=== PATIENT | male | born 1990 | race Caucasian/White ===

== ENCOUNTER 2021-12-03 17:07 | Emergency (ER) | payer SELFPAY ==
[2021-12-03 17:08] VITALS: BP 135/81; PULSE 77; RESP 16; TEMP 36.7; O2SAT 98; BMI 23.5
--- NOTE | 2021-12-03 17:38 | EDS_ITS ---
HPI <GAL Montemayor - Last Filed: 12/03/21 18:27> History of Present Illness Chief Complaint: Wound Narrative Narrative: Patient is a 31-year-old male with no significant ankle history presents the emergency department with complaints of lower back pain, the radiates down his right lower leg, blood in his urine after getting into an altercation with the police 3 days ago. Patient was in long term Tuesday, Tuesday, patient tried to go to work today however had too much pain in his lower back, right leg is here for evaluation. Patient denies any head or neck injury. PFSH <GAL Montemayor - Last Filed: 12/03/21 18:27> [facility] Medical History no medical history Home Medications naproxen [Naprosyn] 500 mg PO BID PRN #20 tab 12/03/21 [Rx Last Taken Unknown] Allergy/AdvReac Type Severity Reaction Status Date / Time No Known Allergies Allergy Verified 12/03/21 17:10 Family History no significant family his Surgical History no surgical history Social History Smoking Status: Current every day smoker tobacco type: cigarettes ROS <GAL Montemayor - Last Filed: 12/03/21 18:27> ROS ED ROS Narrative Constitutional: Negative for fever, chills, weight loss, weakness Eyes: Negative for vision loss, vision change, double vision ENT: Negative for any sore throat, ear pain, congestion Cardiovascular: Negative for any chest pain, tightness, palpitations, racing heartbeat Respiratory: Negative for any cough, sputum production, hemoptysis, shortness of breath, shortness of breath on exertion, orthopnea Gastrointestinal: Negative for any abdominal pain, nausea, vomiting, diarrhea, constipation, blood in stool, blood in vomit : Negative for any urinary frequency, incontinence, dysuria, retention. Positive for blood in urine Muscle skeletal: Negative for any muscle joint pain, stiffness, myalgias, arthralgias, neck pain. Positive back pain that radiates down right leg Neurological: Negative for any headache, dizziness, syncope, numbness or tingling Skin: Negative for any rashes, lumps, itching, abrasions, lacerations Psychiatric: Negative for any depression, anxiety, stress, suicidal ideation, homicidal ideation Hematologic: Negative for any easy bruising, excessive bruising, easy bleeding Allergies: Negative for any eczema, hives, rash EXAM <GAL Montemayor - Last Filed: 12/03/21 18:27> Physical Exam Narrative Exam Narrative: Vital signs reviewed. Patient appears anxious, patient has pain with any sort of movement. HEET: Head normocephalic atraumatic, TMs clear bilaterally. Posterior pharynx is clear, moist mucous membranes. Nares clear bilaterally. Neck: Supple with no lymphadenopathy or tenderness. No signs of meningismus, negative jolt sign. Cardiac: Regular rate and rhythm no murmurs gallops or rubs, equal peripheral pulses bilaterally. Respiratory: Lungs clear to auscultation bilaterally. No chest tenderness. Abdomen: Soft, nontender, nondistended. No abdominal bruit or pulsatile masses. No hepatosplenomegaly Extremities: No peripheral edema, no signs of gross trauma or deformity. Active full range of motion of all extremities. Neuro: Cranial nerves II through XII intact, no focal neurological deficits. Skin: Clean dry and intact with no rash, purpura, petechiae, vesicles or pustules. Backslash flank: No CVA tenderness, no midline spinal tenderness, no deformity. Patient has some pain on palpation to the lower lumbar spine more to the right above the right buttock. Patient does have a light bruise above the buttock however there is no crepitus. Patient has no pain to the midline spine, negative for any step-off deformity. Psych: Normal mood and affect. No SI, HI or acute psychosis. Const Vital Signs: 12/03/21 17:08 12/03/21 18:29 Temperature 98.1 F Temperature Source Temporal Pulse Rate 77 69 Respiratory Rate 16 17 Blood Pressure 135/81 H 111/74 Blood Pressure Mean 99 Pulse Ox 98 98 Oxygen Delivery Method Room Air Positive well nourished and well developed General Appearance ED: well developed <Dr. Shay Saavedra MD - Last Filed: 12/03/21 19:13> Physical Exam Const Vital Signs: 12/03/21 17:08 12/03/21 18:29 Temperature 98.1 F Temperature Source Temporal Pulse Rate 77 69 Respiratory Rate 16 17 Blood Pressure 135/81 H 111/74 Blood Pressure Mean 99 Pulse Ox 98 98 Oxygen Delivery Method Room Air MDM <GAL Montemayor - Last Filed: 12/03/21 18:27> [facility] Narrative Medical decision making narrative: Patient appears well, patient appears nontoxic, vital signs are stable. Patient presents the emergency department after getting into an altercation from the police 3 days ago, patient has pain to his right lower back that rates down his right leg. Patient did receive a urinalysis secondary to him stating he has blood in his urine. Patient's urinalysis shows no blood. Patient's physical exam was unremarkable, patient does have a small bruise to the right lumbar area. At this time, due to the unremarkable physical examination, I do not believe that a radiology test is necessary. Patient be given a prescription for naproxen. He will also be given a follow-up for primary care physician. At this time, patient is stable for discharge. There is no indication of any internal hemorrhage, spinal injury. Patient stable Lab Data Attestation: I reviewed the patient's lab results. Labs: Laboratory Results - last 24 hr 12/03/21 17:35 Urine Color Yellow Urine Clarity Clear Urine pH 6.0 Ur Specific [place] 1.020 Urine Protein 30 H Urine Glucose (UA) Normal Urine Ketones 15 H Urine Occult Blood Negative Urine Nitrite Negative Urine Bilirubin Negative Urine Urobilinogen 4 H Ur Leukocyte Esterase 25 H Urine RBC 0 SEEN Urine WBC 0 SEEN Ur Squamous Epith Cells 0 SEEN Urine Bacteria 0 SEEN Urine Mucus RARE <Dr. Shay Saavedra MD - Last Filed: 12/03/21 19:13> [facility] Narrative Medical decision making narrative: I have personally performed a face to face assessment of the patient and have reviewed the DENNIS Note. I performed a substantive portion of the visit including all aspects of the following. My bedoya findings include: History is is remarkable for pain and gross hematuria. Patient was incarcerated. He is alleging mistreatment by police officers. When asked specifically what happened he recalls being tased. He believes he was needed. There was no head trauma. There is no loss of consciousness but he admits to His complaint of severe back pain. He states any type of movement causes of exquisite severe pain. He denies nausea vomiting. He is not amnestic. He denies trouble with coordination or balance. Immunizations up-to-date. Exam is remarkable for abrasion left brow region. There is no clinical signs of basal skull fracture. There is no evidence of acute dental trauma. Neck is supple. Heart lung exam is normal. Abdomen is minimally tender at best. Patient has a bruise near the posterior iliac superior spine of the pelvis. This is on the right side. Touching his skin caused him to scream in agony. Having him turn onto his right side was not accomplished because of the severe pain he was experiencing. When asked to turn the left side he said he could not because that hurt as well. He was assisted to an upright position to allow proper exam of the back. As previously documented there is 1 area bruise. There is no true central midline spine tenderness. There is no instability of the pelvis. GCS is 15. He has a nonfocal neurologic exam. Medical Decision Making patient states his urine is dark to red UA was obtained. There is no evidence of hematuria. Urine is slightly concentrated and positive with ketones. Patient treated with NSAIDs and she does not have a contraindication. Other additions or changes: [None] Lab Data Labs: Laboratory Results - last 24 hr 12/03/21 17:35 Urine Color Yellow Urine Clarity Clear Urine pH 6.0 Ur Specific [place] 1.020 Urine Protein 30 H Urine Glucose (UA) Normal Urine Ketones 15 H Urine Occult Blood Negative Urine Nitrite Negative Urine Bilirubin Negative Urine Urobilinogen 4 H Ur Leukocyte Esterase 25 H Urine RBC 0 SEEN Urine WBC 0 SEEN Ur Squamous Epith Cells 0 SEEN Urine Bacteria 0 SEEN Urine Mucus RARE Discharge Plan Triage Chief Complaint: Wound ED Midlevel Provider: Rei Scott ED Provider: Shay Saavedra Dx/Rx/DC Orders Clinical Impression: Lumbar spine strain, Contusion Prescriptions: New naproxen [Naprosyn] 500 mg tablet 500 mg PO BID PRN (Reason: pain) Qty: 20 RF: 0 Primary Care Provider: Care Physician,No Primary Referrals: Kev Sanchez MD [STAFF PHYSICIAN] - Care Physician,No Primary [Primary Care Provider] - Print Language: Syriac Disposition Disposition: Home, Self Care Discharge Date/Time: 12/03/21 18:29
[2021-12-03 17:46] LABS: Bacteria 0 SEEN /hpf (None Seen); Red Blood Cells-Urine 0 SEEN /hpf (0-5); Squamous Epithelial Cells - UA 0 SEEN /hpf (0-5); White Blood Cells 0 SEEN /hpf (0-5)
[2021-12-03 17:50] LABS: Color, Urine Yellow (Yellow); Glucose, Dipstick Normal (Normal); Ketone-Dipstick 15 mg/dl (Negative); Leukocyte Esterase-Dipstick 25 /ul (Negative); Nitrite-Dipstick Negative (Negative); Occult Blood-Urine Negative /ul (Negative); Protein-Dipstick 30 mg/dl (Negative); Urine Bilirubin Dipstick Negative (Negative); Urine Clarity Clear (Clear); Urine Urobilinogen 4 mg/dl (Normal)
[2021-12-03 17:56] LABS: Mucous, Urine RARE /hpf (<or=2+)
[2021-12-03 18:29] VITALS: BP 111/74; PULSE 69; RESP 17; O2SAT 98
== END 2021-12-03 18:29 | disposition home or self-care (01) ==
PROVIDERS: Nurse Practitioner; Emergency Provider Emergency Medicine; Visit Provider Emergency Medicine
DX: S39.012A Strain of muscle, fascia and tendon of lower back, initial encounter (principal); S30.0XXA Contusion of lower back and pelvis, initial encounter; S00.81XA Abrasion of other part of head, initial encounter; Y35.831A Legal intervention involving a conducted energy device, law enforcement official injured, initial encounter; R10.819 Abdominal tenderness, unspecified site; R31.0 Gross hematuria; F17.210 Nicotine dependence, cigarettes, uncomplicated
CPT/HCPCS: 81001; 99283